=== PATIENT | male | born 1985 | race Caucasian/White ===

== ENCOUNTER 2019-06-09 18:25 | Emergency (ER) | payer MEDICAID ==
[~2019-06-09] VITALS: Ht 167.6 cm; Wt 84.0 kg
[~2019-06-09 18:25] MED LIST: AMOX500C2 PO; COROTSUS OT; DEXL30CA3 PO; GUAI120015 PO; PSEU-225 PO
[2019-06-09 18:32] VITALS: BP 161/97
[2019-06-09] MEDS ORDERED: PRED20TA PO (20:13)
[2019-06-09] MEDS ORDERED: ALB0.5UD NEB (20:13)
== END 2019-06-09 20:29 | disposition home or self-care (01) ==
LOC: ER 18:26
DX: J06.9 Acute upper respiratory infection, unspecified (principal); J30.9 Allergic rhinitis, unspecified; K21.9 Gastro-esophageal reflux disease without esophagitis; F10.99 Alcohol use, unspecified with unspecified alcohol-induced disorder; Z56.0 Unemployment, unspecified; Z79.899 Other long term (current) drug therapy; Y90.9 Presence of alcohol in blood, level not specified
CPT/HCPCS: 87081; 87880; 99283